=== PATIENT | female | born 1975 | race Caucasian/White ===

== ENCOUNTER 2021-09-23 14:28 | Emergency (ER) | payer MEDICARE, OTHER ==
[~2021-09-23] VITALS: Ht 175.3 cm; Wt 122.5 kg
[2021-09-23 17:02] LABS: BASOPHILS ABSOLUTE AUTO 0.06 K/mm3 (0.00-0.23); BASOPHILS PERCENT AUTO 1 % (0-2); EOSINOPHILS PERCENT AUTO 0 % (0-6); Hemoglobin 11.6 g/dL (11.5-16.0); IMMATURE GRAN ABSOLUTE AUTO 0.07 K/mm3 (0.00-0.10); IMMATURE GRAN PERCENT AUTO 1 % (0-1); LYMPHOCYTES ABSOLUTE AUTO 1.84 K/mm3 (0.84-5.20); LYMPHOCYTES PERCENT AUTO 18 % (21-46); MONOCYTES ABSOLUTE AUTO 0.46 K/mm3 (0.16-1.47); MONOCYTES PERCENT AUTO 5 % (4-13); Mean Corpuscular HGB 24.3 pg (26.0-34.0); Mean Corpuscular HGB Conc 29.7 g/dL (31.5-36.5); Mean Corpuscular Volume 82 fL (80-100); Mean Platelet Volume 10.5 fL (9.1-12.4); NEUTROPHILS PERCENT AUTO 76 % (41-73); Platelet Count 336 K/mm3 (150-400); RDW Coefficient Variation 18.3 % (11.7-14.2); RDW Standard Deviation 54.1 fL (35.1-46.3); Red Blood Cell Count 4.77 M/mm3 (3.80-5.20); White Blood Cell Count 10.03 K/mm3 (4.00-11.30)
[2021-09-23 18:33] LABS: Source, Urine Clean Catch
[2021-09-23 18:42] LABS: Appearance, Urine Cloudy (Clear); Bilirubin, Urine Neg (Neg); Blood, Urine 1+ (Neg); Color, Urine Yellow (P-Yellow); Glucose Qualitative, Urine 4+ (Neg); Ketones, Urine Neg (Neg); Leukocyte Esterase, Urine 3+ (Neg); Nitrite, Urine Neg (Neg); Protein, Urine Neg (Neg); Urobilinogen, Urine NORM (Normal)
[2021-09-23 19:02] LABS: Bacteria Many /hpf; Squamous Epithelial Cells Many /hpf (Few)
[2021-09-23 19:03] LABS: Hyaline Casts 0-2 /lpf (0-2)
[2021-09-23 20:03] LABS: Albumin, Blood 2.4 g/dL (3.4-5.0); Albumin/Globulin Ratio 0.7 (0.8-1.8); Bilirubin, Total 0.2 mg/dL (0.1-1.0); Bun/Creatinine Ratio 16.9 (12.0-20.0); C-REACTIVE PROTEIN, EXT RANGE 1.04 mg/dL (0.000-0.300); Calcium, Blood 8.4 mg/dL (8.5-10.1); Creatinine, Blood 0.83 mg/dL (0.40-1.00); Globulin, Blood 3.5 g/dL (2.2-4.0); Potassium, Blood 3.5 mmol/L (3.5-5.5); Total Protein, Blood 5.9 g/dL (6.4-8.2)
[2021-09-24] MEDS ORDERED: TRAZ50 PO (16:11)
[2021-09-24] MEDS ORDERED: VENL75ER PO (16:11)
[2021-09-24] MEDS ORDERED: ABILIFY MYCITE30 M2 PO (16:12)
[2021-09-24] MEDS ORDERED: ATOR40TA PO (16:12)
[2021-09-24] MEDS ORDERED: FARXIGA10 MG PO (16:13)
[2021-09-24] MEDS ORDERED: Cyclobenzaprine5 MG PO (16:13)
[2021-09-24] MEDS ORDERED: ELIQUIS5 M2 PO (16:13)
[2021-09-24] MEDS ORDERED: INSULANI SC ×2 (16:14)
[2021-09-24] MEDS ORDERED: LEVE500 PO (16:14)
[2021-09-24] MEDS ORDERED: EUTHYROX175 MCG PO (16:15)
[2021-09-24] MEDS ORDERED: METF500 PO (16:15)
[2021-09-24] MEDS ORDERED: RYBELSUS7 MG PO (16:16)
== END 2021-09-23 22:38 | disposition home or self-care (01) ==
LOC: ER 14:28
PROVIDERS: Student in an Organized Health Care Education/Training Program
DX: S71.132A Puncture wound without foreign body, left thigh, initial encounter (principal); M54.50 Low back pain, unspecified; L03.116 Cellulitis of left lower limb; G89.29 Other chronic pain; E11.9 Type 2 diabetes mellitus without complications; I50.9 Heart failure, unspecified; Z88.0 Allergy status to penicillin; Z88.1 Allergy status to other antibiotic agents; Z88.8 Allergy status to other drugs, medicaments and biological substances; Z86.73 Personal history of transient ischemic attack (TIA), and cerebral infarction without residual deficits; X99.9XXA Assault by unspecified sharp object, initial encounter; Y07.03 Male partner, perpetrator of maltreatment and neglect
CPT/HCPCS: 36415; 71045; 80053; 81001; 83605; 84484; 85025; 85651; 86140; 93005; 93010; A9270; J3370; J7030; J7050

== ENCOUNTER 2021-09-24 13:26 | Observation (INO) | payer MEDICARE, OTHER | END 2021-09-28 13:02 | disposition home or self-care (01) | LOC: ER 13:26 → EOR 13:27 | PROVIDERS: ADMIT Emergency Medicine | DX: F31.9 Bipolar disorder, unspecified (principal); R45.851 Suicidal ideations; E11.9 Type 2 diabetes mellitus without complications; I50.9 Heart failure, unspecified; E03.9 Hypothyroidism, unspecified; G40.909 Epilepsy, unspecified, not intractable, without status epilepticus; E66.9 Obesity, unspecified; G89.29 Other chronic pain; F17.210 Nicotine dependence, cigarettes, uncomplicated; Z20.822 Contact with and (suspected) exposure to COVID-19; Z59.00 Homelessness unspecified; Z79.899 Other long term (current) drug therapy; Z86.73 Personal history of transient ischemic attack (TIA), and cerebral infarction without residual deficits; Z88.0 Allergy status to penicillin; Z88.1 Allergy status to other antibiotic agents; Z88.5 Allergy status to narcotic agent; Z88.8 Allergy status to other drugs, medicaments and biological substances ==

== ENCOUNTER 2021-10-01 10:50 | Emergency (ER) | payer MEDICARE, OTHER ==
[~2021-10-01] VITALS: Ht 175.3 cm; Wt 122.5 kg
[~2021-10-01 10:50] MED LIST: ABILIFY MYCITE30 M2 PO; ATOR40TA PO; Cyclobenzaprine5 MG PO; ELIQUIS5 M2 PO; EUTHYROX175 MCG PO; FARXIGA10 MG PO; INSULANI SC; LANTUS SOL100 UNIT/1 SC; LEVE500 PO; METF500 PO; OXAYDO5 M1 PO; RYBELSUS7 MG PO; TRAZ50 PO; VENL75ER PO
[2021-10-03] MEDS ORDERED: CYCL10 PO (08:06)
[2021-10-03] MEDS ORDERED: OXAYDO5 M1 PO (08:06)
== END 2021-10-01 13:30 | disposition home or self-care (01) ==
LOC: ER 10:50
DX: R52 Pain, unspecified (principal); R05.9 Cough, unspecified; E11.9 Type 2 diabetes mellitus without complications; I50.9 Heart failure, unspecified; Z86.711 Personal history of pulmonary embolism; Z79.899 Other long term (current) drug therapy; Z79.4 Long term (current) use of insulin; Z79.01 Long term (current) use of anticoagulants; Z88.6 Allergy status to analgesic agent; Z88.1 Allergy status to other antibiotic agents; Z88.0 Allergy status to penicillin; Z88.8 Allergy status to other drugs, medicaments and biological substances
CPT/HCPCS: 99283